=== PATIENT | female | born 1955 | race Caucasian/White ===

== ENCOUNTER 2022-05-01 09:58 | Outpatient (CLI) | payer MEDICARE | END 2022-05-01 09:59 | disposition home or self-care (01) | LOC: CSHMAMMO 09:58 | PROVIDERS: ATTEND Obstetrics & Gynecology | DX: Z12.31 Encounter for screening mammogram for malignant neoplasm of breast (principal) | CPT/HCPCS: 77063; 77067 ==

== ENCOUNTER 2023-08-07 12:43 | Outpatient (CLI) | payer MEDICARE | END 2023-08-07 12:44 | disposition home or self-care (01) | LOC: CSHMAMMO 12:43 | PROVIDERS: ATTEND Obstetrics & Gynecology | DX: Z12.31 Encounter for screening mammogram for malignant neoplasm of breast (principal) | CPT/HCPCS: 77063; 77067 ==